=== PATIENT | male | born 1960 | race Caucasian/White ===

== ENCOUNTER → 2022-11-16 | Outpatient (CLI) | payer BC ==
--- NOTE | 2022-11-16 17:13 | Diagnostic Imaging Report ---
PROCEDURE: US Thyroid. TECHNIQUE: Multiple real-time grayscale images were obtained of the thyroid in various projections. INDICATION: Enlarged thyroid. COMPARISON: None. FINDINGS: Both thyroid lobes demonstrate a mildly heterogeneous background echotexture. Color flow Doppler demonstrates normal and symmetric vascularity bilaterally. The right lobe measures 6.0 cm in length, 2.9 cm AP, and 2.8 cm transverse. The left lobe measures 5.8 cm in length, 1.3 cm AP, and 2.0 cm transverse. The isthmus measures 0.3 cm. A dominant solid nodule is seen in the right lobe of the thyroid measuring 4.0 x 2.2 x 2.5 cm with mostly isoechoic features. This nodule is taller than wide. A smaller solid nodule in the left lobe of the thyroid measures 1.1 x 0.9 x 1.0 cm. IMPRESSION: 1. Enlarged thyroid with dominant nodule in the right lobe of the thyroid measuring up to 6 cm in diameter. Findings are consistent with a TI-RADS 4 nodule. Based on size criteria thyroid FNA is recommended to further evaluate. Dictated by: Dictated on workstation # [id number]
== END ==
LOC: RAD 09:23
PROVIDERS: ATTEND Nurse Practitioner Family
DX: E04.1 Nontoxic single thyroid nodule (principal)
CPT/HCPCS: 76536

== ENCOUNTER → 2022-11-23 | Day surgery (SDC) | payer BC ==
[~2022-11-23] VITALS: Ht 177.8 cm; Wt 90.9 kg
[~2022-11-23] MED LIST: LIDOCAINE 1% INJ 10 ML VIAL INJ ONE; LIDOCAINE 1% INJ 10 ML VIAL ONE
--- NOTE | 2022-11-23 11:58 | Diagnostic Imaging Report ---
INDICATION: Right thyroid nodule. Patient presents for ultrasound-guided fine needle aspiration. Patient brought to the procedure room and placed on the table in the supine position. Ultrasound imaging of the right neck was performed to evaluate appropriate entry site. Right neck was then prepped and draped in usual sterile fashion. Small amount 1% lidocaine was utilized for local anesthesia. 4 passes were made into the dominant solid nodule right lobe of thyroid utilizing 25-gauge needles and fine-needle aspiration technique. Hemostasis was obtained. Patient tolerated the procedure well and left the department in stable condition. IMPRESSION: Successful ultrasound-guided fine needle aspiration of the dominant solid nodule right lobe of thyroid. Pathology results are currently pending. Dictated by: Dictated on workstation # [id number]
== END ==
LOC: RAD 10:42
PROVIDERS: ATTEND Internal Medicine
DX: E04.1 Nontoxic single thyroid nodule (principal)
CPT/HCPCS: 88173; 88305